=== PATIENT | male | born 1990 | race Caucasian/White ===

== ENCOUNTER 2017-03-09 21:14 | Inpatient (IN) | payer OTHER ==
[~2017-03-09] VITALS: Ht 180.3 cm; Wt 93.5 kg
[2017-03-09 21:43] VITALS: BP 122/85
--- NOTE | 2017-03-09 21:50 | NUR ---
TO ER BED 7
--- NOTE | 2017-03-09 21:55 | NUR ---
26 Y/O M W/C/O SEVERE R ABD PAIN WHICH RADIATES TO THE BACK, NAUSEA AND VOMITING. MED HX GALLSTONES, GALLBLADDER. PT DENIES N/D; SKIN IS PINK/WARM/DRY; AAOX4 WITH EVEN AND STEADY GAIT; LUNGS CLEAR BL; HR EVEN AND REGULAR; PT DENIES ANY FEVER, CP, SOB, OR COUGH AT THIS TIME; PATIENT STATES PAIN OF 10/10 AT THIS TIME; VSS; PATIENT POSITIONED FOR COMFORT; HOB ELEVATED; BEDRAILS UP X2; BED DOWN. ER MD MADE AWARE OF PT STATUS.
[2017-03-09] MEDS ORDERED: MORPHINE SULFATE 4 MG/ML SYR IVP ONE (22:00)
[2017-03-09] MEDS ORDERED: NACL 0.9% 1,000 ML IV ONE (22:00)
[2017-03-09] MEDS ORDERED: ONDANSETRON 4 MG/2 ML VIAL IVP ONE (22:00)
[2017-03-10] MEDS ORDERED: MORPHINE SULFATE 4 MG/ML SYR IVP ONE (00:30)
[2017-03-10] MEDS ORDERED: MORPHINE SULFATE 4 MG/ML SYR IVP PRN (01:45)
[2017-03-10] MEDS ORDERED: MORPHINE SULFATE 2 MG/ML SYR IVP PRN (01:45)
[2017-03-10] MEDS ORDERED: ONDANSETRON 4 MG/2 ML VIAL IVP PRN (01:45)
[2017-03-10] MEDS ORDERED: LORazepam 2 MG/ML VIAL IVP PRN (01:45)
--- NOTE | 2017-03-10 02:01 | NUR ---
Patient appears to be resting comfortably in bed. Vital Signs within normal limits. Respirations even and unlabored.
--- NOTE | 2017-03-10 02:06 | NUR ---
Patient will be admitted to care of DR FLORES. Admited to Med/Surg. Will go to [id number]. Belongings list completed. Report to SOM.
--- NOTE | 2017-03-10 02:30 | NUR ---
Pt transferred to Med/Surg via W/C WITH ANNIE ARAIZA .
--- NOTE | 2017-03-10 02:35 | NUR ---
ADMITTED THIS 26 YEAR OLD MALE PER WHEELCHAIR FROM ER WITH CC OF ABDOMINAL PAIN WITH N/V, ASSESSMENT DONE, VITAL SIGNS STABLE, DENIES ANY PAIN OR N/V AT THIS TIME, ORIENTED TO ROOM AND CALL LIGHT, INSTRUCTED NPO STATUS, SAFETY MEASURES IN PLACE, CALL LIGHT WITHIN REACH.
[2017-03-10] MEDS: NACL 0.9% 1,000 ML IV SCH ×2 (02:46→11:45)
[2017-03-10 03:00] VITALS: BP 130/76
--- NOTE | 2017-03-10 03:00 | NUR ---
IVF OF NS @ 100ML/H STARTED, PT FOR HIDA SCAN LATER TODAY, ALL NEEDS ATTENDED.
--- NOTE | 2017-03-10 04:55 | NUR ---
SINAN FROM [facility] CALLED AND SAID SHE PAGE DR MASTERS SEVERAL TIMES IF THE HIDA SCAN CAN BE DONE IN AM AT 0700, PAGED DR MASTERS AND SHE SAID "IT'S RAQUEL", SINAN MADE AWARE.
--- NOTE | 2017-03-10 05:00 | NUR ---
STARTING DOSE OF HEPARIN SUB-Q ADMINISTERED WITH TEACHING PROVIDED.
--- NOTE | 2017-03-10 06:20 | NUR ---
ROUNDED ON PT, SLEEPING, NO SIGNS OF PAIN, IVF INFUSING WELL, MAINTAINED ON NPO.
--- NOTE | 2017-03-10 07:22 | NUR ---
PT SLEEPING, EASILY AROUSABLE, REPORT GIVEN TO MATTY FONSECA FOR CONTINUITY OF CARE. Addendum: 03/10/17 at 0725 by Ivan Lal RN REPORT GIVEN TO MARIAN VARELA
--- NOTE | 2017-03-10 07:22 | NUR ---
RECEIVED REPORT FROM NIGHT NURSE. PT IS AAOX4, ON ROOM AIR, IV TO RIGHT AC 20G INFUSING WELL, SKIN INTACT. PT STATES NO PAIN AT THIS TIME. INITIAL ASSESSMENT COMPLETED, REVIEWED PLAN OF CARE WITH PT, PT VERBALIZED UNDERSTANDING. ALL SAFETY PRECAUTIONS MET, ALL NEEDS MET. CALL LIGHT WITHIN REACH. WILL CONTINUE TO MONITOR.
[2017-03-10 08:00] VITALS: BP 129/80
--- NOTE | 2017-03-10 08:40 | NUR ---
PT C/O OF ABD PAIN 03/25, MEDICATED PER MD ORDERS. ALL NEEDS MET. CALL LIGHT WITHIN REACH. WILL CONTINUE TO MONITOR.
--- NOTE | 2017-03-10 09:09 | NUR ---
PATIENT HAS BEEN SCREENED AND CATEGORIZED MODERATE NUTRITION RISK. PATIENT WILL BE SEEN WITHIN 3-5 DAYS OF ADMISSION. 03/12/17-03/14/[address]
[2017-03-10] MEDS ORDERED: PEPCID20 MG PO (10:30)
--- NOTE | 2017-03-10 12:25 | NUR ---
FAXED INITIAL REVIEW TO [facility] [phone] PHONE MARCH [phone] [place] [phone]
--- NOTE | 2017-03-10 12:45 | NUR ---
PT CURRENTLY VISITING WITH , ALL NEEDS MET. CALL LIGHT WITHIN REACH, WILL CONTINUE TO MONITOR.
[2017-03-10] MEDS ORDERED: POTASSIUM CHLORIDE 10 MEQ TABER PO SCH (13:00)
--- NOTE | 2017-03-10 15:45 | NUR ---
DISCUSSED DISCHARGE PLAN WITH PT AND BOTH VERBALIZED UNDERSTANDING
[2017-03-10 16:00] VITALS: BP 121/80
--- NOTE | 2017-03-10 16:35 | NUR ---
PT SIGNED ALL DISCHARGE PAPERWORK, DISCHARGE EDUCATION GIVEN, PT VERBALIZED UNDERSTANDING, IV REMOVED TIP INTACT. ALL PERSONAL BELONGINGS WITH PT. AT BEDSIDE.
--- NOTE | 2017-03-10 16:57 | NUR ---
PT WAS WALKED OUT TO FRONT LOBBY IN STABLE CONDITION
[2017-03-10] MEDS ORDERED: FAMOTIDINE 20 MG TAB PO SCH (21:00)
== END 2017-03-10 16:57 | disposition home or self-care (01) | DRG 241 ==
LOC: MED 21:14 → MTU 03-10 01:49
PROVIDERS: ADMIT Hospitalist; ATTEND Hospitalist
DX: K29.20 Alcoholic gastritis without bleeding (principal); E86.0 Dehydration; F12.90 Cannabis use, unspecified, uncomplicated; E87.6 Hypokalemia; G43.A0 Cyclical vomiting, in migraine, not intractable; R74.0 Nonspecific elevation of levels of transaminase and lactic acid dehydrogenase [LDH]; Z72.89 Other problems related to lifestyle; Z90.49 Acquired absence of other specified parts of digestive tract

== ENCOUNTER 2020-08-07 15:38 | Emergency (ER) | payer OTHER ==
[~2020-08-07] VITALS: Ht 180.3 cm; Wt 122.5 kg
[~2020-08-07 15:38] MED LIST: FAMO-90 PO
[2020-08-07 15:41] VITALS: BP 132/72
--- NOTE | 2020-08-07 15:50 | NUR ---
PATIENT PRESENTS TO ED WITH ABD PAIN SINCE THIS MORNING. PT STATES THAT HE HAS BEEN VOMITING AND FEELS DEHYDRATED. PT DONATED PLASMA YESTERDAY. SKIN IS PINK/WARM/DRY; AAOX4 WITH EVEN AND STEADY GAIT; LUNGS CLEAR BL; HR EVEN AND REGULAR; PT DENIES ANY FEVER, CP, SOB, OR COUGH AT THIS TIME; PATIENT STATES PAIN OF 9/10 AT THIS TIME; VSS; PATIENT POSITIONED FOR COMFORT; HOB ELEVATED; BEDRAILS UP X2; BED DOWN. ER MD MADE AWARE OF PT STATUS. MED HX: GALL BLADDER REMOVAL
[2020-08-07] MEDS ORDERED: ONDANSETRON 4 MG ODT PO ONE (15:55)
[2020-08-07] MEDS ORDERED: KETOROLAC 60 MG/2 ML VIAL IM ONE (15:55)
[2020-08-07 16:47] VITALS: BP 132/72
--- NOTE | 2020-08-07 16:48 | NUR ---
Patient discharged with v/s stable. Written and verbal after care instructions given and explained. Patient alert, oriented and verbalized understanding of instructions. Ambulatory with steady gait. All questions addressed prior to discharge. ID band removed. Patient advised to follow up with PMD. Rx of MOTRIN AND ZOFRAN given. Patient educated on indication of medication including possible reaction and side effects. Opportunity to ask questions provided and answered.
[2020-08-11] MEDS ORDERED: CEPH250C16 PO (13:06)
== END 2020-08-07 16:48 | disposition home or self-care (01) ==
LOC: MED 15:38
DX: R10.9 Unspecified abdominal pain (principal); R11.2 Nausea with vomiting, unspecified; Z79.899 Other long term (current) drug therapy; Z90.49 Acquired absence of other specified parts of digestive tract
CPT/HCPCS: 81002; 96372; 99283; J1885; Q0162

== ENCOUNTER 2020-08-21 15:13 | Inpatient (IN) | payer OTHER, SELFPAY ==
[~2020-08-21] VITALS: Ht 154.9 cm; Wt 115.2 kg
[~2020-08-21 15:13] MED LIST changes: +CEPH250C16 PO; -FAMO-90 PO
[2020-08-21 15:27] VITALS: BP 132/85
--- NOTE | 2020-08-21 15:38 | NUR ---
COLLECTED URINE SAMPLE AT THIS TIME
--- NOTE | 2020-08-21 16:31 | NUR ---
PT TAKEN TO BED 7.
[2020-08-21] MEDS ORDERED: HYDROcodone/APAP 10/325 MG 1 TAB TAB PO ONE (17:15)
[2020-08-21 17:52] LABS: BASOPHILS % (AUTO) 0.4 % (0.0-2.0); EOSINOPHILS % (AUTO) 0.5 % (0.0-4.0); HEMATOCRIT 40.3 % (36-52); HEMOGLOBIN 13.3 g/dL (12.0-18.0); LYMPHOCYTES # (AUTO) 1.4 K/uL (2.0-11.5); LYMPHOCYTES % (AUTO) 15.4 % (20.5-51.1); MEAN CORPUSCULAR HEMOGLOBIN 28 pg (27-31); MEAN CORPUSCULAR HGB CONC 33 g/dL (33-37); MEAN CORPUSCULAR VOLUME 83.9 fL (80-94); MONOCYTES # (AUTO) 0.5 K/uL (0.8-1.0); MONOCYTES % (AUTO) 5.8 % (1.7-9.3); NEUTROPHILS # (AUTO) 6.9 K/uL (1.8-7.7); NEUTROPHILS % (AUTO) 77.9 % (42.2-75.2); PLATELET COUNT (AUTO) 351 K/uL (140-450); RED CELL DISTRIBUTION WIDTH 15.1 % (11.6-13.7); WHITE BLOOD COUNT (AUTO) 8.8 K/uL (4.8-10.8)
[2020-08-21 18:04] LABS: ALBUMIN 3.5 g/dL (3.4-5.0); ANION GAP 12.6 (8-16); CARBON DIOXIDE 28.2 mmol/L (21-32); CREATININE 0.8 mg/dL (0.6-1.3); POTASSIUM 3.8 mmol/L (3.5-5.1); TOTAL BILIRUBIN 0.4 mg/dL (0.0-1.0)
--- NOTE | 2020-08-21 18:30 | NUR ---
RETURNED FROM CT
--- NOTE | 2020-08-21 19:12 | NUR ---
REPORT TO MARIAN ALEJANDRA
--- NOTE | 2020-08-21 19:12 | NUR ---
REPORT RECEIVED FROM DAXA FONSECA FOR CONTINUITY OF CARE
--- NOTE | 2020-08-21 19:17 | NUR ---
PT AMBULATED TO RESTROOM, STEADY GAIT
--- NOTE | 2020-08-21 19:20 | NUR ---
PT AMBULATED BACK TO BED 07 STEADY GAIT
[2020-08-21 19:27] LABS: APPEARANCE,URINE CLEAR (CLEAR); BILIRUBIN,URINE NEGATIVE (NEGATIVE); BLOOD, URINE NEGATIVE (NEGATIVE); COLOR,URINE YELLOW (YELLOW); LEUKOCYTE ESTERASE ,URINE NEGATIVE (NEGATIVE); NITRITE, URINE NEGATIVE (NEGATIVE); UGLUCOSE NEGATIVE (NEGATIVE)
--- NOTE | 2020-08-21 19:30 | NUR ---
COLUMBA SWAB COLLECTED AND SENT TO LAB
[2020-08-21] MEDS ORDERED: ONDANSETRON 4 MG ODT PO PRN (19:40)
[2020-08-21] MEDS ORDERED: ACETAMINOPHEN 325 MG TAB PO PRN (19:40)
[2020-08-21] MEDS ORDERED: ONDANSETRON 4 MG/2 ML VIAL IVP PRN (19:40)
[2020-08-21] MEDS ORDERED: HYDROcodone/APAP 5/325 MG 1 TAB TAB PO PRN (19:40)
--- NOTE | 2020-08-21 20:38 | NUR ---
called pt's Siomara, updated on pt status
--- NOTE | 2020-08-21 21:45 | NUR ---
Patient will be admitted to care of DR STANFORD. Admited to [facility]. Will go to room 119 B. Belongings list completed. Report to RICKEY FONSECA.
--- NOTE | 2020-08-21 21:50 | NUR ---
ADMITTED 30, MALE, AAOX4, NO DISTRESS, RAC 20 G, INTACT, AMBULATORY, DENIES PAIN, ON ROOM AIR, SAFETY MEASURES IN PLACE, CALL LIGHT WITHIN REACH. WILL MONITOR.
[2020-08-21] MEDS: NACL 0.9% 1,000 ML IV SCH (22:20)
--- NOTE | 2020-08-22 | NUR ---
PT ASLEEP, RESPIRATION EVEN AND UNLABORED.
--- NOTE | 2020-08-22 03:00 | NUR ---
SLEEPING, CHEST RISE NOTED, WILL MONITOR, CALL LIGHT WITHIN REACH.
[2020-08-22 05:56] LABS: BASOPHILS % (AUTO) 0.6 % (0.0-2.0); EOSINOPHILS # (AUTO) 0.1 K/uL (0-0.4); EOSINOPHILS % (AUTO) 1.7 % (0.0-4.0); HEMATOCRIT 40.4 % (36-52); HEMOGLOBIN 13.2 g/dL (12.0-18.0); LYMPHOCYTES # (AUTO) 1.2 K/uL (2.0-11.5); LYMPHOCYTES % (AUTO) 22.1 % (20.5-51.1); MEAN CORPUSCULAR HEMOGLOBIN 28 pg (27-31); MEAN CORPUSCULAR HGB CONC 33 g/dL (33-37); MEAN CORPUSCULAR VOLUME 84.1 fL (80-94); MONOCYTES # (AUTO) 0.5 K/uL (0.8-1.0); MONOCYTES % (AUTO) 8.4 % (1.7-9.3); NEUTROPHILS # (AUTO) 3.7 K/uL (1.8-7.7); NEUTROPHILS % (AUTO) 67.2 % (42.2-75.2); PLATELET COUNT (AUTO) 339 K/uL (140-450); RED CELL DISTRIBUTION WIDTH 15.1 % (11.6-13.7); WHITE BLOOD COUNT (AUTO) 5.4 K/uL (4.8-10.8)
[2020-08-22 05:59] LABS: ALBUMIN 3.2 g/dL (3.4-5.0); ANION GAP 13.1 (8-16); CARBON DIOXIDE 25.9 mmol/L (21-32); CREATININE 0.9 mg/dL (0.6-1.3); MAGNESIUM 2.1 mg/dL (1.8-2.4); TOTAL BILIRUBIN 0.5 mg/dL (0.0-1.0)
--- NOTE | 2020-08-22 06:55 | NUR ---
PATIENT IS IN STABLE CONDITION, CALL LIGHT WITHIN REACH.
--- NOTE | 2020-08-22 07:20 | NUR ---
RECEIVED REPORT FROM PM RN FOR CONTINUITY OF CARE. PT IS RESTING IN BED, IN NO DISTRESS. WILL CONTINUE WITH POC
[2020-08-22 08:00] VITALS: BP 129/86
--- NOTE | 2020-08-22 08:30 | NUR ---
PT IS RESTING IN BED, WATCHING TV PT EATING CLEAR LIQUID DIET, DENIES ANY PAIN AT THIS TIME. V/S: 97.2, 64, 18, 129/86, 99% RA PAIN 0/10.LUNG SOUNDS CLEAR, ABD IS ROUND, SOFT AND REPORTS DISCOMFORT TO "RIGHT SIDE TO RIGHT BACK AREA." NO TENDERNESS ANYWHERE ELSE. DENIES NEED FOR PAIN MANAGEMENT AT THIS TIME. ACTIVE BS X 4. REPORTS DISCOMFORT STARTED A FEW DAYS AGO. SAFETY MEASURES IN PLACE, CALL LIGHT WITHIN REACH. WILL CONTINUE WITH POC.
[2020-08-22] MEDS: NACL 0.9% 1,000 ML IV SCH ×2 (08:55→22:20)
--- NOTE | 2020-08-22 10:35 | NUR ---
PT IS RESTING IN BED, WATCHING TV. IN NO DISTRESS. ALL NEEDS MET.
--- NOTE | 2020-08-22 12:10 | NUR ---
PATIENT HAS BEEN SCREENED AND CATEGORIZED MODERATE NUTRITION RISK. PATIENT WILL BE SEEN WITHIN 3-5 DAYS OF ADMISSION. 08/24/20 08/26/[address]
--- NOTE | 2020-08-22 12:40 | NUR ---
PT IS WATCHING TV WITH NO ISSUES IN NO DISTRESS. CALL LIGHT WITHIN REACH.
[2020-08-22] MEDS: LEVOFLOXACIN 500 MG/D5W PREMIX 100 ML IV SCH (13:39)
[2020-08-22] MEDS: MORPHINE SULFATE 2 MG/ML SYR IVP PRN (13:42)
--- NOTE | 2020-08-22 13:55 | NUR ---
PT WAS GIVEN MORPHINE 2 MG DUE TO C/O RUQ PAIN 03/25. PT EDUCATED ON ALTERNATIVE PAIN MANAGEMENT SUCH DEEP BREATHING AND DISTRACTION. B/P 132/82, 72.
--- NOTE | 2020-08-22 14:40 | NUR ---
PT REPORTED INCREASED PAIN REPORTED AT 9/10 41 MIN AFTER MORPHINE WAS GIVEN PT WAS EDUCATED ON NOT BEING ABLE TO GIVE MORE MEDICATION AT THIS TIME. PT EDUCATED ON ALTERNATIVE WAYS.
[2020-08-22] MEDS: metroNIDAZOLE 500 MG/NS PREMIX 100 ML IV SCH ×2 (15:43→21:35)
[2020-08-22 16:00] VITALS: BP 123/68
--- NOTE | 2020-08-22 16:30 | NUR ---
V/S: 97.9, 59, 18, 123/68, 98% RA PAIN 0/10. IN NO DISTRESS. CALL LIGHT WITHIN REACH.
--- NOTE | 2020-08-22 18:53 | NUR ---
PT SITTING UP IN BED EATING DINNER, IN NO DISTRESS.
--- NOTE | 2020-08-22 19:25 | NUR ---
REPORT GIVEN TO PM RN FOR CONTINUITY OF CARE. PT IS STABLE, WATCHING TV ALL NEEDS MET.
--- NOTE | 2020-08-22 19:30 | NUR ---
RECEIVED REPORT FROM ESHA MAJANOHISERGIO AT BEDSIDE FOR CONTINUITY OF CARE, PT IN STABLE CONDITION.
--- NOTE | 2020-08-22 20:00 | NUR ---
PT SITTING UP IN BED AOX4, NO C/O VOICED AT THIS TIME. IV SITE RAC 20 G INTACT AND RUNNING NORMAL SALINE AT 75MLS/HR. PT REMINDED THAT HE NEEDS TO BE NPO POST 10 PM. V/S FOLLOWS: T 98.3 P 58 R 18 B/P 123/85 02 95% ON ROOM AIR. ALL UNIVERSAL FALLS PRECAUTIONS IN PLACE.
--- NOTE | 2020-08-22 21:30 | NUR ---
NARCISA HUNG AND RUNNING AT 100MLS/HR ORDERED. EDUCATION AND SIDE EFFECTS OF MEDS PROVIDE AT BEDSIDE, PT ACKNOWLEDGED UNDERSTANDING. DISCUSSED ERCP PROCEDURE WITH PT, PT ACKNOWLEDGED THAT HE ALREADY HAD CONSULT WITH SURGEON. PT SIGNED CONSENT. ALL FALLS PREVENTION IN PLACE.
--- NOTE | 2020-08-22 22:30 | NUR ---
PT RESTING IN BED NO C/O VOICED AT THIS TIME. IV SITE INTACT AND RUNNING FLUIDS ORDERED.
[2020-08-23] VITALS: BP 149/83
--- NOTE | 2020-08-23 | NUR ---
PT IN BED NO S/S OF PAIN OR DISTRESS NOTED. IV SITE INTACT AND RUNNING N/S AT 75MLS/HR. V/S FOLLOWS: T 97.7 P 72 R 18 B/P 149/83 02 96% ON ROOM AIR.
--- NOTE | 2020-08-23 05:40 | NUR ---
NARCISA HUNG AND RUNNING At 100MLS/HR ORDERED. NO C/O VOICED.
[2020-08-23] MEDS: metroNIDAZOLE 500 MG/NS PREMIX 100 ML IV SCH ×3 (05:59→20:37)
[2020-08-23] MEDS: NACL 0.9% 1,000 ML IV SCH ×4 (05:59→22:36)
--- NOTE | 2020-08-23 07:15 | NUR ---
RECEIVED REPORT FROM NIGHT NURSE PATIENT IS AAOX4 ON ROOM AIR, NPO AFTER MIDNIGHT, IV SITES INTACT AND PATENT ON RIGHT AC PATIENT IS SCHEDULED FOR ERCP PROCEDURE CONSENT DONE. SKIN INTACT. SAFETY MEASURES IN PLACE AND CALL LIGHT WITHIN REACH. WILL CONTINUE TO MONITOR.
[2020-08-23 08:00] VITALS: BP 163/90
--- NOTE | 2020-08-23 08:00 | NUR ---
PATIENT WAS OUT IN HIS ROOM FOR ERCP PROCEDURE. PT IS STABLE
[2020-08-23] MEDS ORDERED: PROPOFOL 200 MG/20 ML VIAL IV ONE (08:23)
[2020-08-23] MEDS ORDERED: HYDROmorphone PFS 2 MG/ML SYR ONE (09:02)
[2020-08-23] MEDS ORDERED: diphenhydrAMINE 50 MG/ML VIAL IVP PRN (09:05)
[2020-08-23] MEDS ORDERED: ONDANSETRON 4 MG/2 ML VIAL IVP PRN (09:05)
[2020-08-23] MEDS: HYDROmorphone 1 MG/ML AMP IVP PRN ×4 (09:08→09:38)
[2020-08-23] MEDS: MEPERIDINE 25 MG/ML SYR IVP PRN ×2 (09:08→09:18)
--- NOTE | 2020-08-23 09:50 | NUR ---
PATIENT BACK IN HIS ROOM AFTER ERCP PROCEDURE. CHECK VITAL SIGNS BP 168/109 CO 61 RR 20 O2SAT 96 PATIENT COMPLAINS OF PAIN 9/10. GEVE MORPHINE 4MG PRN FOR PAIN 7-10.
--- NOTE | 2020-08-23 10:00 | NUR ---
PATIENT STILL ON NPO FOR [address] MONTAÑO ORDER AND INSTRUCTED TO WATCH FOR ESRP PANCREATITIS
[2020-08-23] MEDS: MORPHINE SULFATE 4 MG/ML SYR IVP PRN ×2 (10:18→16:24)
--- NOTE | 2020-08-23 10:18 | NUR ---
PATIENT COMPLAINS OF PAIN ON THE BACK AND LEFT SIDE OF THE CHEST 9/10 PAIN MEDICATION GIVEN
[2020-08-23] MEDS: MORPHINE SULFATE 2 MG/ML SYR IVP PRN ×2 (12:43→20:38)
--- NOTE | 2020-08-23 12:43 | NUR ---
PATIENT STILL COMPLAINS OF SEVERE PAIN 9/10 AND FEELS NAUSEATED AND TRIES TO VOMIT. PAIN MEDICATION AND ZOFRAN GIVEN.
[2020-08-23] MEDS: KETOROLAC 30 MG/ML VIAL IVP PRN (14:03)
--- NOTE | 2020-08-23 14:03 | NUR ---
PATIENT STILL IN SEVERE PAIN. CONSULTED DR PEPPER AND WAS ADVICED TO GIVE TORADOL 30MG Q8H PRN.
[2020-08-23] MEDS: LEVOFLOXACIN 500 MG/D5W PREMIX 100 ML IV SCH (14:38)
[2020-08-23 16:00] VITALS: BP 134/89
--- NOTE | 2020-08-23 16:24 | NUR ---
PATIENT NOT RELIEVED FROM PAIN MEDICATIONS AND COMPLAINS OF PAIN 02/22. GAVE MORPHINE 4MG.CHECK VITAL SIGNS BP 134/89 OK 64.
--- NOTE | 2020-08-23 17:20 | NUR ---
PATIENT PAIN REDUCED TO 2/10 AND WAS ABLE TO REST AND SLEEP
--- NOTE | 2020-08-23 19:30 | NUR ---
ENDORSED TO NIGHT NURSE FOR CONTINUITY OF CARE. PT IS STABLE
--- NOTE | 2020-08-23 19:40 | NUR ---
RECEIVED BEDSIDE REPORT FROM DAY SHIFT NURSE. PATIENT IS AWAKE, ALERT, AND COOPERATIVE. RESPIRATION EVEN UNLABORED ON ROOM AIR. NO DISTRESS NOTED. SKIN IS WARM AND DRY. IV PATENT AND INTACT. PLAN OF CARE WAS DISCUSSED. ALL SAFETY MEASURES IN PLACE. BED IS AT LOW POSITION. CALL LIGHT WITHIN REACH. WILL CONTINUE TO MONITOR.
--- NOTE | 2020-08-23 20:42 | NUR ---
PATIENT IS COMPLAINING OF ABDOMINAL PAIN 6/. PRN PAIN MED ADMINISTERED PER ORDER. VITALS WERE TAKEN. ALL SCHEDULED MEDS WERE GIVEN. WILL CONTINUE TO MONITOR
--- NOTE | 2020-08-23 21:25 | NUR ---
REASSESSED PAIN. PATIENT VERBALIZE REDUCE PAIN.
[2020-08-23] MEDS ORDERED: ZOLPIDEM 10 MG TAB PO PRN (21:30)
[2020-08-24] VITALS: BP 143/81
[2020-08-24] MEDS: KETOROLAC 30 MG/ML VIAL IVP PRN
--- NOTE | 2020-08-24 | NUR ---
PATIENT COMPLAINED OF PAIN 8/10. PRN PAIN GIVEN PER ORDER. WILL CONTINUE TO MONITOR
--- NOTE | 2020-08-24 | NUR ---
VITALS WERE TAKEN
[2020-08-24] MEDS: NACL 0.9% 1,000 ML IV SCH ×2 (01:00→08:26)
--- NOTE | 2020-08-24 02:05 | NUR ---
MADE ROUNDS. PATIENT IS SLEEPING RESPIRATION EVEN UNLABORED ON ROOM AIR. NO DISTRESS NOTED.
--- NOTE | 2020-08-24 03:59 | NUR ---
CHECKED PATIENT. PATIENT SLEEPING RESPIRATION EVEN UNLABORED ON ROOM AIR. NO DISTRESS NOTED
[2020-08-24] MEDS: metroNIDAZOLE 500 MG/NS PREMIX 100 ML IV SCH ×2 (04:42→13:04)
--- NOTE | 2020-08-24 07:31 | NUR ---
RECEIVED REPORT FROM NIGHT NURSE FOR CONTINUITY OF CARE, PT IS AAOX4, PT IS ASLEEP, NO SIGNS OF DISTRESS NOTED, RESPIRATIONS ARE EVEN AND UNLABORED ON ROOM AIR. PT HAS RIGHT AC 20G INFUSING NS AT 125ML/H, SKIN INTACT, BED IN LOW POSITION, SAFETY MEASURES IN PLACE, CALL LIGHT WITHIN REACH, WILL CONTINUE TO MONITOR.
--- NOTE | 2020-08-24 07:31 | NUR ---
ENDORSED PATIENT TO DAY SHIFT NURSE AT BEDSIDE FOR CONTINUITY OF CARE
[2020-08-24 08:00] VITALS: BP 135/83
--- NOTE | 2020-08-24 08:28 | NUR ---
ADMINISTERED SCHEDULED FLUID NS AT 75ML/H, EDUCATION PROVIDED, PT VERBALIZED UNDERSTANDING, PROVIDED PT WITH INFORMATION ABOUT HIS ERCP PROCEDURE ACCORDING TO PROGRESS NOTED, PT IS STABLE, CALL LIGHT WITHIN REACH, WILL CONTINUE TO MONITOR.
--- NOTE | 2020-08-24 11:30 | NUR ---
PT RESTING IN BED, NO SIGNS OF DISTRESS NOTED, RESPIRATIONS ARE EVEN AND UNLABORED ON ROOM AIR, PT IS STABLE, CALL LIGHT WITHIN REACH, WILL CONTINUE TO MONITOR.
[2020-08-24 11:36] LABS: ALBUMIN 3.4 g/dL (3.4-5.0); ANION GAP 14.6 (8-16); CARBON DIOXIDE 24.7 mmol/L (21-32); CREATININE 0.8 mg/dL (0.6-1.3); POTASSIUM 3.3 mmol/L (3.5-5.1); TOTAL BILIRUBIN 1.5 mg/dL (0.0-1.0)
[2020-08-24] MEDS ORDERED: ONDA4ODT2 PO ×2 (11:39→11:44)
[2020-08-24] MEDS ORDERED: ONDANSETRON 4 MG/2 ML VIAL IVP PRN (12:09)
[2020-08-24] MEDS ORDERED: POTASSIUM CHLORIDE 10 MEQ TABER PO SCH (12:30)
--- NOTE | 2020-08-24 12:37 | NUR ---
ADMINISTERED SCHEDULED MEDICATION, MEDICATION EDUCATION PROVIDED, PT VERBALIZED UNDERSTANDING, PT TOLERATED WELL, PT IS STABLE, CALL LIGHT WITHIN REACH, WILL CONTINUE TO MONITOR.
[2020-08-24 12:48] LABS: BASOPHILS % (AUTO) 0.3 % (0.0-2.0); EOSINOPHILS # (AUTO) 0.4 K/uL (0-0.4); EOSINOPHILS % (AUTO) 4.8 % (0.0-4.0); HEMATOCRIT 37.3 % (36-52); HEMOGLOBIN 12.3 g/dL (12.0-18.0); LYMPHOCYTES # (AUTO) 1.1 K/uL (2.0-11.5); LYMPHOCYTES % (AUTO) 13.3 % (20.5-51.1); MEAN CORPUSCULAR HEMOGLOBIN 28 pg (27-31); MEAN CORPUSCULAR HGB CONC 33 g/dL (33-37); MEAN CORPUSCULAR VOLUME 83.7 fL (80-94); MONOCYTES # (AUTO) 0.7 K/uL (0.8-1.0); MONOCYTES % (AUTO) 7.9 % (1.7-9.3); NEUTROPHILS # (AUTO) 6.2 K/uL (1.8-7.7); NEUTROPHILS % (AUTO) 73.7 % (42.2-75.2); PLATELET COUNT (AUTO) 232 K/uL (140-450); RED BLOOD CELL COUNT(AUTO) 4.46 MIL/uL (4.20-6.10); RED CELL DISTRIBUTION WIDTH 15.1 % (11.6-13.7); WHITE BLOOD COUNT (AUTO) 8.4 K/uL (4.8-10.8)
--- NOTE | 2020-08-24 13:06 | NUR ---
ADMINISTERED SCHEDULED MEDICATION, MEDICATION EDUCATION PROVIDED, PT VERBALIZED UNDERSTANDING, PT TOLERATED WELL, PT IS STABLE, CALL LIGHT WITHIN REACH, WILL CONTINUE TO MONITOR.
--- NOTE | 2020-08-24 13:25 | NUR ---
SOCIAL WORK NOTE: Patient's Orientation Person Situation Place Time Information Provided By PATIENT Comments SW MET WITH PATIENT AT BEDSIDE TO COMPLETE ASSESSMENT AND VERIFY DEMOGRAPHICS. Wood Lathe Operator, Realtionship and Phone Number MINA MIKE [phone] Healthcare Power of Air Liaison And Special Staff No Does Patient Have a POLST No Identifying Problems No Social Work Triggers Is A Social Work Consult Needed No Mandate Report Filed No Explanation Of Identifying Problems PATIENT IS A 30-YEAR-OLD MALE ADMITTED FOR BACK PAIN. PATIENT HAS NO REPORTED PMHX. PATIENT REPORTED NO HISTORY OF MENTAL HEALTH OR SUBSTANCE ABUSE. Admitted From Home Pre-Admission Level Of Functioning Status Independent/Ambulatory Prior Resources/Services Used In Last 12 Months No Prior Resources Used Prior DME No Prior DME Used Dialysis Comments N/A Living Situation Apartment Patient Had Caregiver No Home Support No Caregiver Issues Financial Issues No Known Financial Issue Referral To The Financial Counselor Needed No Factors/Needs No D/C Needs Identified Explanation And Or Other Factors Affecting/Possible DC Needs PATIENT STATED HIS WILL PICK PATIENT UP AT DISCHARGE. Pt/Rep Participated In Discharge Plan Yes Patient/Family Agress With Discharge Plan Yes Discharge Plan Comments TENTATIVE DISCHARGE PLAN IS FOR PATIENT TO RETURN HOME. DC Plan Status Initiated
[2020-08-24] MEDS: LEVOFLOXACIN 500 MG/D5W PREMIX 100 ML IV SCH (14:09)
--- NOTE | 2020-08-24 14:12 | NUR ---
ADMINISTERED SCHEDULED MEDICATION, MEDICATION EDUCATION PROVIDED, PT VERBALIZED UNDERSTANDING, PT TOLERATED WELL, PT IS STABLE, CALL LIGHT WITHIN REACH, WILL CONTINUE TO MONITOR.
--- NOTE | 2020-08-24 14:34 | NUR ---
DISCHARGE PLANNING: THIS IS A 30 Y/O MALE PATIENT FROM HOME, WHO CAME IN DUE TO RUQ PAIN. PAST SURGICAL HISTORY INCLUDE CHOLECYSTECTOMY. S/P ERCP BY DR. MONTAÑO ON 08/23/2020. FOR POSSIBLE DC TODAY.
--- NOTE | 2020-08-24 15:53 | NUR ---
PT RECEIVED DISCHARGE INSTRUCTIONS, PT VERBALIZED UNDERSTANDING, IV REMOVED AND INTACT, PT AMBULATED TO THE FRONT LOBBY WITH STEADY GAIT, PT DISCHARGED HOME. FLU UP TO DATE, PNA- N/A
== END 2020-08-24 16:03 | disposition home or self-care (01) ==
LOC: MED 15:13 → MTU 19:45
PROVIDERS: ADMIT Hospitalist; ATTEND Hospitalist
PROC: 0F798ZZ Dilation of Common Bile Duct, Via Natural or Artificial Opening Endoscopic (ICD-10-PCS; 2020-08-23)
PROC: BF131ZZ Fluoroscopy of Gallbladder and Bile Ducts using Low Osmolar Contrast (ICD-10-PCS; 2020-08-23)
PROC: 0FPB8DZ Removal of Intraluminal Device from Hepatobiliary Duct, Via Natural or Artificial Opening Endoscopic (ICD-10-PCS; principal; 2020-08-23 08:00)
DX: K83.1 Obstruction of bile duct (principal); K62.5 Hemorrhage of anus and rectum; E66.9 Obesity, unspecified; Z20.828 Contact with and (suspected) exposure to other viral communicable diseases; K85.90 Acute pancreatitis without necrosis or infection, unspecified; F12.10 Cannabis abuse, uncomplicated; N20.0 Calculus of kidney; Z68.42 Body mass index [BMI] 45.0-49.9, adult; Z82.5 Family history of asthma and other chronic lower respiratory diseases; Z90.49 Acquired absence of other specified parts of digestive tract; Z82.49 Family history of ischemic heart disease and other diseases of the circulatory system
CPT/HCPCS: 36415; 71045; 74018; 74330; 80053; 81003; 83690; 83735; 85025; 87081; 96374; 96375; 99285; C1769; J1170; J1885; J1956; J2270; J2405; J2704; J3490; J7030; Q9967

== ENCOUNTER 2021-04-27 15:41 | Emergency (ER) | payer OTHER, SELFPAY ==
[~2021-04-27] VITALS: Ht 180.3 cm; Wt 90.7 kg
[~2021-04-27 15:41] MED LIST changes: +ONDA4ODT2 PO
[2021-04-27 16:01] VITALS: BP 90/58
--- NOTE | 2021-04-27 16:22 | NUR ---
Patient ambulated to bed 7. RN evaluating the patient at bedside.
--- NOTE | 2021-04-27 16:26 | NUR ---
30/M presents to ED with c/o back and side pain. Patient states he began having back and side pain 2 hours prior to arrival to ED, stating he took Ibuprofen with no relief. Patient states he has had two episodes of vomiting, stating "the pain is making me vomit." Patient denies diarrhea, states "it feels hard" to pass a bowel movement, last BM this morning. Patient states currently 10/10 sharp constant pain. Patient alert and oriented x4, answering questions appropriately.
[2021-04-27] MEDS ORDERED: KETOROLAC 30 MG/ML VIAL IVP ONE (17:10)
[2021-04-27 17:30] LABS: BASOPHILS % (AUTO) 0.2 % (0.0-2.0); EOSINOPHILS % (AUTO) 0.1 % (0.0-4.0); HEMATOCRIT 45.4 % (36-52); HEMOGLOBIN 14.9 g/dL (12.0-18.0); LYMPHOCYTES # (AUTO) 1.4 K/uL (2.0-11.5); LYMPHOCYTES % (AUTO) 12.6 % (20.5-51.1); MEAN CORPUSCULAR HEMOGLOBIN 27 pg (27-31); MEAN CORPUSCULAR HGB CONC 33 g/dL (33-37); MEAN CORPUSCULAR VOLUME 81.3 fL (80-94); MONOCYTES # (AUTO) 0.5 K/uL (0.8-1.0); MONOCYTES % (AUTO) 4.2 % (1.7-9.3); NEUTROPHILS # (AUTO) 8.9 K/uL (1.8-7.7); NEUTROPHILS % (AUTO) 82.9 % (42.2-75.2); PLATELET COUNT (AUTO) 269 K/uL (140-450); RED BLOOD CELL COUNT(AUTO) 5.59 MIL/uL (4.20-6.10); RED CELL DISTRIBUTION WIDTH 14.9 % (11.6-13.7); WHITE BLOOD COUNT (AUTO) 10.8 K/uL (4.8-10.8)
--- NOTE | 2021-04-27 17:37 | NUR ---
Patient returned from CT scan. RN reevaluating the patient at bedside.
[2021-04-27 17:42] LABS: ANION GAP 12.2 (8-16); CARBON DIOXIDE 26.9 mmol/L (21-32); CREATININE 1.3 mg/dL (0.6-1.3); POTASSIUM 4.1 mmol/L (3.5-5.1); TOTAL BILIRUBIN 0.4 mg/dL (0.0-1.0)
[2021-04-27] MEDS ORDERED: IBUP-2213 PO (18:37)
[2021-04-27] MEDS ORDERED: ACET-5629 PO (18:39)
[2021-04-27] MEDS ORDERED: TAMS0.4C97 PO (18:40)
[2021-04-27] MEDS ORDERED: ONDA-24 SL (18:41)
[2021-04-27] MEDS ORDERED: IBUPROFEN 600 MG TAB PO ONE (18:45)
[2021-04-27 19:30] VITALS: BP 169/96
--- NOTE | 2021-04-27 19:30 | NUR ---
Patient discharged with v/s stable. Written and verbal after care instructions given and explained. Patient alert, oriented and verbalized understanding of instructions. Ambulatory with steady gait. All questions addressed prior to discharge. ID band removed. Patient advised to follow up with PMD. Rx of PERCOCET, ZOFRAN, AND TAMSULOSIN given. Patient educated on indication of medication including possible reaction and side effects. Opportunity to ask questions provided and answered.
== END 2021-04-27 19:30 | disposition home or self-care (01) ==
LOC: MED 15:41
DX: N20.0 Calculus of kidney (principal); R11.2 Nausea with vomiting, unspecified; F17.200 Nicotine dependence, unspecified, uncomplicated; F12.90 Cannabis use, unspecified, uncomplicated; Z71.6 Tobacco abuse counseling; Z79.899 Other long term (current) drug therapy; Z90.49 Acquired absence of other specified parts of digestive tract
CPT/HCPCS: 36415; 74176; 80053; 81002; 83615; 83690; 85025; 96374; 99284; J1885

== ENCOUNTER 2021-04-30 13:06 | Emergency (ER) | payer OTHER, SELFPAY ==
[~2021-04-30] VITALS: Ht 180.3 cm; Wt 99.8 kg
[~2021-04-30 13:06] MED LIST changes: +ACET-5629 PO; +IBUP-2213 PO; +ONDA-24 SL; +TAMS0.4C97 PO
[2021-04-30 13:19] VITALS: BP 148/51
--- NOTE | 2021-04-30 13:25 | NUR ---
PT TO AWAIT IN LOBBY
--- NOTE | 2021-04-30 14:10 | NUR ---
BLOOD LABS BEING DRAWN AT THIS TIME
[2021-04-30 14:50] LABS: BASOPHILS % (AUTO) 0.3 % (0.0-2.0); EOSINOPHILS % (AUTO) 0.1 % (0.0-4.0); HEMATOCRIT 45.7 % (36-52); LYMPHOCYTES # (AUTO) 1.2 K/uL (2.0-11.5); LYMPHOCYTES % (AUTO) 13.2 % (20.5-51.1); MEAN CORPUSCULAR HEMOGLOBIN 27 pg (27-31); MEAN CORPUSCULAR HGB CONC 33 g/dL (33-37); MEAN CORPUSCULAR VOLUME 81.7 fL (80-94); MONOCYTES # (AUTO) 0.5 K/uL (0.8-1.0); MONOCYTES % (AUTO) 5.5 % (1.7-9.3); NEUTROPHILS # (AUTO) 7.4 K/uL (1.8-7.7); NEUTROPHILS % (AUTO) 80.9 % (42.2-75.2); PLATELET COUNT (AUTO) 294 K/uL (140-450); RED CELL DISTRIBUTION WIDTH 14.6 % (11.6-13.7); WHITE BLOOD COUNT (AUTO) 9.1 K/uL (4.8-10.8)
[2021-04-30 15:01] LABS: APPEARANCE,URINE HAZY (CLEAR); BILIRUBIN,URINE 2+ (NEGATIVE); BLOOD, URINE 3+ (NEGATIVE); COLOR,URINE YELLOW (YELLOW); LEUKOCYTE ESTERASE ,URINE NEGATIVE (NEGATIVE); NITRITE, URINE NEGATIVE (NEGATIVE); UGLUCOSE NEGATIVE (NEGATIVE)
[2021-04-30 15:08] LABS: ALBUMIN 4.5 g/dL (3.4-5.0); ANION GAP 11.7 (8-16); CARBON DIOXIDE 29.9 mmol/L (21-32); CREATININE 1.2 mg/dL (0.6-1.3); POTASSIUM 3.6 mmol/L (3.5-5.1); TOTAL BILIRUBIN 1.1 mg/dL (0.0-1.0)
[2021-04-30 15:20] LABS: RBC,URINE 20-50 /HPF (0-5); WBC,URINE 0-5 /HPF (0-5)
--- NOTE | 2021-04-30 15:39 | NUR ---
PATIENT AMBULATED TO BED 02
[2021-04-30] MEDS ORDERED: MORPHINE SULFATE 4 MG/ML SYR IVP ONE (15:40)
[2021-04-30] MEDS ORDERED: NACL 0.9% 1,000 ML IV ONE (15:40)
--- NOTE | 2021-04-30 15:45 | NUR ---
30 Y/O MALE C/O RUQ PAIN 07/25 DESCRIBES SHARP/SHOOTING RADIATES TO RIGHT FLANK X3DAYS. PT STATES HE WAS RECENTLY SEEN AT [facility] AND DX WITH KIDNEY STONE, PRESCRIBED NORCO AND PERCOCET WITH NO RELIEF. PT STATES +N/V 5 TIMES TODAY, +DIZZINESS. PT DENIES FEVER/CHILLS. DENIES PMH NKA
--- NOTE | 2021-04-30 16:19 | NUR ---
Pt taken to CT via W/C.
--- NOTE | 2021-04-30 16:30 | NUR ---
Pt taken to ER bed 2 via W/C.
--- NOTE | 2021-04-30 16:34 | NUR ---
PT RETURNED TO BEDSIDE FROM CT VIA W/C
--- NOTE | 2021-04-30 17:00 | NUR ---
PT RESTING BEDSIDE WITH EYES CLOSED. EQUAL RISE OF FALL CHEST NOTED. BED TO LOWEST POSITION. SIDE RAIL X1 UP. VITAL SIGNS STABLE. WILL CONTUINE TO MONITOR
--- NOTE | 2021-04-30 17:05 | NUR ---
sPOKE WITH [facility] FOR UPDATES. [phone]
[2021-04-30] MEDS ORDERED: ACET-8386 PO (17:19)
[2021-04-30] MEDS ORDERED: CEPH-588 PO (17:21)
[2021-04-30 17:46] VITALS: BP 148/91
--- NOTE | 2021-04-30 17:47 | NUR ---
Patient discharged with v/s stable. Written and verbal after care instructions given KIDNEY STONES AND UTI and explained. Patient alert, oriented and verbalized understanding of instructions. Ambulatory with steady gait. All questions addressed prior to discharge. ID band removed. Patient advised to follow up with PMD. Rx of KEFLEX 500MG PO BID FOR 10 DAYS, AND NORCO 5MG-325MG PO Q6H PRN PAIN given. Patient educated on indication of medication including possible reaction and side effects. Opportunity to ask questions provided and answered.
--- NOTE | 2021-05-03 19:55 | NUR ---
LATE ENTRY- 0.9% NS BOLUS DISCONTINUED AT 1745
== END 2021-04-30 17:47 | disposition home or self-care (01) ==
LOC: MED 13:06
DX: N20.0 Calculus of kidney (principal); Z79.899 Other long term (current) drug therapy
CPT/HCPCS: 36415; 74176; 80053; 81001; 83690; 85025; 96361; 96374; 99284; J2270; J7030

== ENCOUNTER 2021-07-17 03:19 | Emergency (ER) | payer OTHER ==
[~2021-07-17] VITALS: Ht 180.3 cm; Wt 113.4 kg
[~2021-07-17 03:19] MED LIST changes: +ACET-8386 PO; +CEPH-588 PO
[2021-07-17 03:21] VITALS: BP 156/90
--- NOTE | 2021-07-17 03:21 | NUR ---
TO BED AMBULATORY
[2021-07-17] MEDS ORDERED: diphenhydrAMINE 50 MG/ML VIAL IVP ONE (03:35)
[2021-07-17] MEDS ORDERED: METOCLOPRAMIDE 10 MG/2 ML INJ VIAL IVP ONE (03:35)
[2021-07-17] MEDS ORDERED: KETOROLAC 30 MG/ML VIAL IVP ONE (03:35)
--- NOTE | 2021-07-17 03:35 | NUR ---
31 m bib with c/c of sharp r sided 07/25 pain radiating to center of abd. +n/v. pt states he has trouble breathing during pain peak. stated he has been vomitting since 2pm 07/16, unable to eat or drink. took zofran and tylenol with little relief. pt stated pain is similar to when he had kidney stones. abd is tender to touch, bowel sound x4. hx:kidney stones rx:denies nka
--- NOTE | 2021-07-17 03:45 | NUR ---
pt provided with specimen cup.
[2021-07-17 03:59] LABS: BASOPHILS # (AUTO) 0.1 K/uL (0.00-0.22); BASOPHILS % (AUTO) 1.2 % (0.0-2.0); EOSINOPHILS % (AUTO) 0.1 % (0.0-4.0); HEMATOCRIT 44.6 % (36-52); LYMPHOCYTES # (AUTO) 0.9 K/uL (2.0-11.5); LYMPHOCYTES % (AUTO) 9.7 % (20.5-51.1); MEAN CORPUSCULAR HEMOGLOBIN 27 pg (27-31); MEAN CORPUSCULAR HGB CONC 34 g/dL (33-37); MEAN CORPUSCULAR VOLUME 81.4 fL (80-94); MONOCYTES # (AUTO) 0.2 K/uL (0.8-1.0); MONOCYTES % (AUTO) 2.3 % (1.7-9.3); NEUTROPHILS # (AUTO) 8.4 K/uL (1.8-7.7); PLATELET COUNT (AUTO) 248 K/uL (140-450); RED BLOOD CELL COUNT(AUTO) 5.48 MIL/uL (4.20-6.10); RED CELL DISTRIBUTION WIDTH 15.5 % (11.6-13.7); WHITE BLOOD COUNT (AUTO) 9.7 K/uL (4.8-10.8)
--- NOTE | 2021-07-17 04:00 | NUR ---
us at bedside.
[2021-07-17] MEDS ORDERED: NACL 0.9% 1,000 ML IV ONE (04:05)
[2021-07-17 04:20] LABS: ALBUMIN 4.1 g/dL (3.4-5.0); ANION GAP 15.3 (8-16); CARBON DIOXIDE 25.4 mmol/L (21-32); CREATININE 1.2 mg/dL (0.6-1.3); POTASSIUM 3.7 mmol/L (3.5-5.1); TOTAL BILIRUBIN 0.6 mg/dL (0.0-1.0)
[2021-07-17 04:28] LABS: NEUTROPHILS % (AUTO) 86.7 % (42.2-75.2)
[2021-07-17 04:35] LABS: BILIRUBIN,URINE NEGATIVE (NEGATIVE); BLOOD, URINE 1+ (NEGATIVE); COLOR,URINE YELLOW (YELLOW); LEUKOCYTE ESTERASE ,URINE NEGATIVE (NEGATIVE); NITRITE, URINE NEGATIVE (NEGATIVE); UGLUCOSE NEGATIVE (NEGATIVE)
[2021-07-17 04:36] LABS: APPEARANCE,URINE SLIGHTLY HAZY (CLEAR)
--- NOTE | 2021-07-17 04:49 | NUR ---
rad at bedside.
[2021-07-17 04:55] LABS: HYALINE CASTS, URINE 0-5 /LPF (None Seen)
--- NOTE | 2021-07-17 05:19 | NUR ---
pt is awake and alert. pt stated he feels better, pain has reduced and is tolerable. all needs met at this time. vss. pt is in stable condition. side rails x2, bed locked in lowest position.
--- NOTE | 2021-07-17 06:10 | NUR ---
pt is sleeping, opens eyes to sound. equal rise and fall of chest wall. vss. pt is in stable condition. all needs met at this time. side rails x2. bed locked in lowest position.
[2021-07-17] MEDS ORDERED: IBUP-2213 PO (06:45)
[2021-07-17] MEDS ORDERED: METO-486 PO (06:45)
[2021-07-17 06:56] VITALS: BP 103/60
--- NOTE | 2021-07-17 06:56 | NUR ---
Patient discharged with v/s stable. Written and verbal after care instructions given and explained. Patient alert, oriented and verbalized understanding of instructions. Ambulatory with steady gait. All questions addressed prior to discharge. ID band removed. Patient advised to follow up with PMD. Rx of ibuprofen and reglan given. Patient educated on indication of medication including possible reaction and side effects. Opportunity to ask questions provided and answered.
== END 2021-07-17 06:56 | disposition home or self-care (01) ==
LOC: MED 03:19
DX: N20.1 Calculus of ureter (principal); R11.2 Nausea with vomiting, unspecified; Z79.899 Other long term (current) drug therapy
CPT/HCPCS: 36415; 74018; 76770; 80053; 81001; 83690; 85025; 87086; 96361; 96374; 96375; 99284; J1200; J1885; J2765; Q0092; J7030

== ENCOUNTER 2021-07-21 08:31 | Emergency (ER) | payer OTHER ==
[~2021-07-21] VITALS: Ht 180.3 cm; Wt 120.3 kg
[~2021-07-21 08:31] MED LIST changes: +METO-486 PO
[2021-07-21 08:37] VITALS: BP 146/94
--- NOTE | 2021-07-21 09:11 | NUR ---
31/M PRESENTS TO ED WITH C/O RIGHT SIDED FLANK PAIN. PATIENT STATES HE WAS SEEN HERE ON 07/17 FOR THE SAME SYMPTOMS AND DX WITH KIDNEY STONES. PATIENT STATES HE BEGAN EXPERIENCING RELIEF BUT SYMPTOMS RETURNED YESTERDAY. REPORTS 04/24 SHARP CONSTANT PAIN, STATES HE HAD ONE EPISODE OF VOMITING THIS MORNING, DENIES NAUSEA OR DIARRHEA AT THIS TIME. WAS GIVEN RX OF IBUPROFEN AND REGLAN UPON D/C ON LAST VISIT BUT STATES HE HAS FOUND MINIMAL RELIEF. DENIES CP, SOB, FEVER OR CHILLS, REPORTS "FREQUENT URGES TO URINATE" BUT DENIES DYSURIA OR HEMATURIA.
[2021-07-21] MEDS ORDERED: KETOROLAC 30 MG/ML VIAL IM ONE (10:10)
[2021-07-21 10:57] LABS: APPEARANCE,URINE HAZY (CLEAR); BILIRUBIN,URINE 1+ (NEGATIVE); COLOR,URINE YELLOW (YELLOW); LEUKOCYTE ESTERASE ,URINE NEGATIVE (NEGATIVE); NITRITE, URINE NEGATIVE (NEGATIVE); UGLUCOSE NEGATIVE (NEGATIVE)
[2021-07-21 10:58] LABS: BASOPHILS # (AUTO) 0.1 K/uL (0.00-0.22); BASOPHILS % (AUTO) 0.8 % (0.0-2.0); EOSINOPHILS # (AUTO) 0.1 K/uL (0-0.4); EOSINOPHILS % (AUTO) 0.8 % (0.0-4.0); HEMATOCRIT 43.7 % (36-52); HEMOGLOBIN 14.5 g/dL (12.0-18.0); LYMPHOCYTES # (AUTO) 1.4 K/uL (2.0-11.5); LYMPHOCYTES % (AUTO) 19.2 % (20.5-51.1); MEAN CORPUSCULAR HEMOGLOBIN 28 pg (27-31); MEAN CORPUSCULAR HGB CONC 33 g/dL (33-37); MEAN CORPUSCULAR VOLUME 83.3 fL (80-94); MONOCYTES # (AUTO) 0.7 K/uL (0.8-1.0); MONOCYTES % (AUTO) 9.6 % (1.7-9.3); NEUTROPHILS # (AUTO) 5.1 K/uL (1.8-7.7); NEUTROPHILS % (AUTO) 69.6 % (42.2-75.2); PLATELET COUNT (AUTO) 248 K/uL (140-450); RED BLOOD CELL COUNT(AUTO) 5.25 MIL/uL (4.20-6.10); RED CELL DISTRIBUTION WIDTH 15.6 % (11.6-13.7); WHITE BLOOD COUNT (AUTO) 7.3 K/uL (4.8-10.8)
[2021-07-21 11:07] LABS: RBC,URINE 0-5 /HPF (0-5); WBC,URINE 0-5 /HPF (0-5)
[2021-07-21 11:10] LABS: BLOOD, URINE 1+ (NEGATIVE)
[2021-07-21 11:12] LABS: ALBUMIN 3.8 g/dL (3.4-5.0); ANION GAP 14.4 (8-16); CARBON DIOXIDE 24.6 mmol/L (21-32); CREATININE 1.4 mg/dL (0.6-1.3)
[2021-07-21] MEDS ORDERED: ONDANSETRON 4 MG/2 ML VIAL IVP ONE (11:30)
[2021-07-21] MEDS ORDERED: MORPHINE SULFATE 4 MG/ML SYR IVP ONE (11:30)
[2021-07-21] MEDS ORDERED: NACL 0.9% 1,000 ML IV ONE (11:30)
--- NOTE | 2021-07-21 12:00 | NUR ---
PATIENT APPEARS TO BE RESTING WITH EYES CLOSED, ON BEDSIDE ASSEMBLER METAL FURNITURE. STATING HE FEELS SLIGHTLY BETTER, ALL NEEDS MET AT THIS TIME.
[2021-07-21] MEDS ORDERED: KETOROLAC 30 MG/ML VIAL IVP ONE (12:15)
[2021-07-21] MEDS ORDERED: TAMS0.4C96 PO (14:09)
[2021-07-21] MEDS ORDERED: NAPR-54 PO (14:09)
[2021-07-21] MEDS ORDERED: ACET-8386 PO (14:09)
[2021-07-21 14:25] VITALS: BP 129/80
--- NOTE | 2021-07-21 14:26 | NUR ---
Patient discharged with v/s stable. Written and verbal after care instructions given and explained. Patient alert, oriented and verbalized understanding of instructions. Ambulatory with steady gait. All questions addressed prior to discharge. ID band removed. Patient advised to follow up with PMD. Rx of FLOMAX, NORCO, AND NAPROSYN given. Patient educated on indication of medication including possible reaction and side effects. Opportunity to ask questions provided and answered.
--- NOTE | 2021-07-22 19:33 | NUR ---
LATE ENTRY- NORMAL SALINE 0.9% DISCONTINUED AT 1300
== END 2021-07-21 14:26 | disposition home or self-care (01) ==
LOC: MED 08:31
DX: N20.1 Calculus of ureter (principal); R10.9 Unspecified abdominal pain; Z90.49 Acquired absence of other specified parts of digestive tract; Z79.899 Other long term (current) drug therapy; Z79.891 Long term (current) use of opiate analgesic; Z79.1 Long term (current) use of non-steroidal anti-inflammatories (NSAID); Z79.2 Long term (current) use of antibiotics
CPT/HCPCS: 36415; 74176; 80053; 81001; 85025; 96361; 96372; 96374; 96375; 99284; J1885; J2270; J2405; J7030

== ENCOUNTER 2022-02-16 08:40 | Emergency (ER) | payer OTHER ==
[~2022-02-16] VITALS: Ht 180.3 cm; Wt 133.4 kg
[~2022-02-16 08:40] MED LIST changes: +NAPR-54 PO; +ONDA-188 SL; -ONDA-24 SL; +TAMS0.4C96 PO
[2022-02-16 08:53] VITALS: BP 153/110
--- NOTE | 2022-02-16 08:58 | NUR ---
PT AMBULATED TO BED 5.
--- NOTE | 2022-02-16 09:08 | NUR ---
31 Y/O M BIB SELF C/O HEADACHE, LEFT TONGUE PAIN 7/10 X YESTERDAY/LAST NIGHT. DENIES TRAUMA. NKA PMH: GALL BLADDER REMOVAL
--- NOTE | 2022-02-16 09:54 | NUR ---
DR OKEEFE AT BEDSIDE.
--- NOTE | 2022-02-16 10:00 | NUR ---
Note [email or web address] in EDM - 02/16/22 at 1001 by [email or web address] Patient discharged with v/s stable. Written and verbal after care instructions given and explained. Patient alert, oriented and verbalized understanding of instructions. Ambulatory with steady gait. All questions addressed prior to discharge. ID band removed. Patient advised to follow up with PMD. Rx of IBUPROFEN given. Opportunity to ask questions provided and answered.
[2022-02-16] MEDS ORDERED: CARB15DR61 OT (10:20)
[2022-02-16] MEDS ORDERED: AMOX1TAB8 PO (10:20)
[2022-02-16] MEDS ORDERED: ACET-8386 PO ×2 (10:20→10:21)
[2022-02-16] MEDS ORDERED: IBUP-2213 PO (10:20)
--- NOTE | 2022-02-16 10:35 | NUR ---
Patient discharged with v/s stable. Written and verbal after care instructions given and explained. Patient alert, oriented and verbalized understanding of instructions. Ambulatory with steady gait. All questions addressed prior to discharge. ID band removed. Patient advised to follow up with PMD. Rx of HYDROCODONE/ACETAMINOPHEN, AMOXICILLIN/POTASSIUM, CARBAMIDE PEROXIDE given. Opportunity to ask questions provided and answered.
--- NOTE | 2022-02-16 10:36 | NUR ---
Chart checked and completed. The patient's care was reviewed and supervised by Yamilex Miller RN.
== END 2022-02-16 10:35 | disposition home or self-care (01) ==
LOC: MED 08:40
DX: K02.9 Dental caries, unspecified (principal); K08.89 Other specified disorders of teeth and supporting structures; H61.22 Impacted cerumen, left ear; Z79.899 Other long term (current) drug therapy
CPT/HCPCS: 81002; 99283

== ENCOUNTER 2023-11-21 12:13 | Emergency (ER) | payer OTHER ==
[~2023-11-21] VITALS: Ht 172.7 cm; Wt 113.4 kg
[~2023-11-21 12:13] MED LIST changes: -ACET-8386 PO; +ACET-8905 PO; +AMOX1TAB8 PO; +CARB15DR61 OT
[2023-11-21 12:26] VITALS: BP 153/124; PULSE 69; RESP 18; TEMP 97.6; O2SAT 98
[2023-11-21 14:33] LABS: BASOPHILS # (AUTO) 0.1 K/uL (0.00-0.22); BASOPHILS % (AUTO) 0.4 % (0.0-2.0); EOSINOPHILS # (AUTO) 0.1 K/uL (0-0.4); EOSINOPHILS % (AUTO) 0.4 % (0.0-4.0); HEMATOCRIT 47.7 % (36-52); HEMOGLOBIN 16.2 g/dL (12.0-18.0); LYMPHOCYTES % (AUTO) 6.7 % (20.5-51.1); MEAN CORPUSCULAR HEMOGLOBIN 30 pg (27-31); MEAN CORPUSCULAR HGB CONC 34 g/dL (33-37); MEAN CORPUSCULAR VOLUME 86.9 fL (80-94); MONOCYTES # (AUTO) 0.7 K/uL (0.8-1.0); MONOCYTES % (AUTO) 4.9 % (1.7-9.3); NEUTROPHILS # (AUTO) 13.1 K/uL (1.8-7.7); NEUTROPHILS % (AUTO) 87.6 % (42.2-75.2); PLATELET COUNT (AUTO) 210 K/uL (140-450); RED BLOOD CELL COUNT(AUTO) 5.49 MIL/uL (4.20-6.10); WHITE BLOOD COUNT (AUTO) 14.9 K/uL (4.8-10.8)
[2023-11-21 14:41] LABS: ANION GAP 13.4 (8-16); CALCIUM 8.4 mg/dL (8.5-10.1); CARBON DIOXIDE 25.9 mmol/L (21-32); CREATININE 0.9 mg/dL (0.6-1.3); POTASSIUM 4.3 mmol/L (3.5-5.1)
[2023-11-21 14:48] LABS: ALBUMIN 3.7 g/dL (3.4-5.0); BILIRUBIN,DIRECT 0.1 mg/dL (0.0-0.3); TOTAL BILIRUBIN 0.3 mg/dL (0.0-1.0); TOTAL PROTEIN, SERUM 7.9 g/dL (6.4-8.2)
[2023-11-21 15:06] LABS: FLU A ANTIGEN negative (NEGATIVE); FLU B ANTIGEN NEGATIVE (NEGATIVE)
[2023-11-21 15:08] LABS: APPEARANCE,URINE CLEAR (CLEAR); BILIRUBIN,URINE NEGATIVE (NEGATIVE); BLOOD, URINE TRACE-I (NEGATIVE); COLOR,URINE YELLOW (YELLOW); LEUKOCYTE ESTERASE ,URINE NEGATIVE (NEGATIVE); NITRITE, URINE NEGATIVE (NEGATIVE); PROTEIN,URINE NEGATIVE (NEGATIVE); UGLUCOSE NEGATIVE (NEGATIVE); UROBILINOGEN,URINE 0.2 EU/dL (0.2 - 1)
[2023-11-21 15:15] LABS: BACTERIA,URINE FEW /HPF (None Seen); HYALINE CASTS, URINE 1 /LPF (None Seen); MUCUS,URINE 1+ /LPF (None Seen); RBC,URINE 0-5 /HPF (0-5); SQUAMOUS EPITHELIAL CELL,UR 50-80 /LPF (0-3 (FEW)); TRICHOMONAS,URINE None Seen /HPF (None Seen); WBC,URINE 0-5 /HPF (0-5); YEAST,URINE None Seen /HPF (None Seen)
[2023-11-21] MEDS ORDERED: ACETAMINOPHEN EXTRA STRENGTH 500 MG TAB ONE (15:27)
[2023-11-21] MEDS ORDERED: KETOROLAC 30 MG/ML VIAL ONE (15:27)
[2023-11-21] MEDS ORDERED: ONDANSETRON 4 MG ODT ONE (15:27)
[2023-11-21] MEDS: ONDANSETRON 4 MG ODT PO ONE (15:31)
[2023-11-21] MEDS: KETOROLAC 30 MG/ML VIAL IM ONE (15:33)
[2023-11-21] MEDS: ACETAMINOPHEN EXTRA STRENGTH 500 MG TAB PO ONE (15:34)
[2023-11-21] MEDS ORDERED: ONDA-188 PO (16:30)
== END 2023-11-21 16:48 | disposition home or self-care (01) ==
LOC: MED 12:13
DX: R10.11 Right upper quadrant pain (principal); Z20.822 Contact with and (suspected) exposure to COVID-19; R11.2 Nausea with vomiting, unspecified; Z79.899 Other long term (current) drug therapy
CPT/HCPCS: 36415; 74176; 80048; 80076; 81001; 83690; 85025; 87426; 87804; 96372; 99285; J1885; Q0162